=== PATIENT | male | born 1975 | race Caucasian/White ===

== ENCOUNTER 2019-11-11 21:54 | Emergency (ER) | payer SELFPAY ==
[2019-11-11 21:57] VITALS: BP 116/87; PULSE 100; RESP 16; TEMP 36.8; O2SAT 97; BMI 25.0
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
[2019-11-11 22:42] LABS: Basophils % 0.2 %; Eosinophils # 0.1 10^3/uL (0.0-0.8); Eosinophils % 1.2 %; Hematocrit 39.2 % (42.0-52.0); Hemoglobin 12.8 g/dL (11.7-16.6); Lymphocytes % 20.8 %; Mean Corpuscular HGB Conc 32.7 g/dL (30.0-36.0); Mean Corpuscular Hemoglobin 30.2 pg (28.0-34.0); Mean Corpuscular Volume 92.5 fL (80-94); Mean Platelet Volume 9.1 fL (7.4-10.4); Monocytes # 0.6 10^3/uL (0.2-0.9); Monocytes % 5.6 %; Nucleated Red Blood Cells % 0 %; Platelet Count 246 10^3/cmm (130-400); Red Blood Count 4.24 10^6/uL (4.1-5.3); Red Cell Distribution Width 13.2 % (12.1-15.1); White Blood Count 9.7 10^3/uL (4.0-10.0)
[2019-11-11 22:44] VITALS: RESP 18
[2019-11-11] MEDS: HYDROmorphone 1 mg/mL INJ 1 mL IVP (22:44)
[2019-11-11] MEDS: ondansetron 2 mg/ML SDV 2 mL 4 MG IVP (22:44)
[2019-11-11 23:01] LABS: Alanine Aminotransferase 13 U/L (0-41); Albumin Level 4.2 g/dL (3.5-5.2); Alkaline Phosphatase 63 IU/L (40-130); Anion Gap 16.1 (5-19); Aspartate Amino Transferase 15 U/L (0-40); Blood Urea Nitrogen 13 mg/dL (6-20); Carbon Dioxide 27 mmol/L (22-29); Chloride 104 mmol/L (98-107); Globulin 2.6 g/dL (1.3-4.6); Glucose 110 mg/dL (65-115); Osmolality Calculated 293 mOsm/kg (285-295); Potassium 4.1 mmol/L (3.5-5.1); Sodium 143 mmol/L (136-145); Total Bilirubin 0.2 mg/dL (0.15-1.2); Total Protein 6.8 g/dL (6.6-8.7)
[2019-11-11] MEDS: LORazepam 2 mg/mL INJ 1 mL IVP (23:05)
--- NOTE | 2019-11-11 23:12 | PC.NURSE ---
MD at bedside to remove blade from arm. Pt. tolerating well.
[2019-11-11 23:14] VITALS: BP 130/89; PULSE 77; RESP 19; O2SAT 99
--- NOTE | 2019-11-11 23:30 | XRR_ITS ---
PROCEDURE INFORMATION: Exam: XR Right Humerus Exam date and time: 11/11/2019 11:31 PM Age: 43 years old Clinical indication: Injury or trauma; Follow-up exam; Wound; Arm, upper; Right; Additional info: Post foreign body removal TECHNIQUE: Imaging protocol: XR Right humerus Views: 2 or more views. COMPARISON: [place] [id number] 11/11/2019 10:17 PM FINDINGS: Bones/joints: Normal. Soft tissues: Surgical irina seen over the right upper humerus with removal of previously seen foreign body in this area. XR/[place] [id number] IMPRESSION: Surgical irina seen over the right upper humerus with removal of previously seen foreign body in this area.
--- NOTE | 2019-11-11 23:45 | PC.NURSE ---
MLP at bedside to jayson pt's right hand laceration. [place] in place to right upper arm laceration. Pt. tolerating well.
[2019-11-11 23:48] VITALS: BP 120/90; PULSE 92; RESP 18; O2SAT 98
--- NOTE | 2019-11-11 23:51 | PC.NURSE ---
Pt. given Dilaudid instead of morphine. Morphine not given
[2019-11-12] MEDS: tetanus-dipt-pertussis 0.5 mL SDV IM (01:12)
[2019-11-12 01:14] VITALS: BP 117/87; PULSE 79; RESP 19; O2SAT 97
--- NOTE | 2019-11-14 11:52 | DCPLANNER ---
manager personal had message to schedule a follow up appointment for patient with ortho. manager personal called the ortho clinic, spoke with Trixie, gave clinic patients information. manager personal was told that patients information would be printed and reviewed. Clinic will call hospice case manager and patient with appointment information.
--- NOTE | 2019-11-15 09:13 | DCPLANNER ---
Addendum entered by Estefani Oden 11/15/19 09:42: this was documented on the wrong patient. Patient has a follow up appointment with ortho not Dr. Stallworth. Original Note: manager banking had message to schedule a follow up appointment for patient with Dr. Stallworth. manager banking called the office of Dr. Stallworth, spoke with Judie, gave clinic patients information. A follow up appointment is scheduled for , November 24, 2019 at 12:[address] Stallworth. manager banking called patient and informed patient of the scheduled appointment. manager banking also informed Deana with [facility] of scheduled appointment.
--- NOTE | 2019-11-15 10:34 | DCPLANNER ---
Addendum entered by Estefani Oden 11/16/19 11:24: Pat from ortho called rn field case manager stating that the clinic attempted to contact patient, left a voicemail, but was not able to confirm with patient appointment information. Patient had an appointment scheduled for 11.15.19, patient did not attend the appointment. Appointment did not go as a no show, due to clinic not being able to confirm appointment with patient. Original Note: Patient has a follow up appointment scheduled for Friday, November 15, 2019 at 2:[address] Jerome at ortho. Clinic will call patient with appointment information.
--- NOTE | 2019-12-02 13:56 | DCPLANNER ---
Patient had an appointment scheduled with ortho for 11.15.19. The appointment had been cancelled.
== END 2019-11-12 01:18 | disposition home or self-care (01) ==
PROVIDERS: Physician Assistant; Emergency Provider Emergency Medicine
DX: S41.121A Laceration with foreign body of right upper arm, initial encounter (principal); S62.390A Other fracture of second metacarpal bone, right hand, initial encounter for closed fracture; W31.89XA Contact with other specified machinery, initial encounter; F17.210 Nicotine dependence, cigarettes, uncomplicated
CPT/HCPCS: 12002; 12034; 12345; 29125; 73060; 73130; 80053; 85025; 86850; 86900; 87040; 90471; 90715; 96365; 96375; 99282; 99283; A6446; J0690; J1170; J2060; J2405

== ENCOUNTER 2020-04-16 00:36 | Observation (INO) | payer SELFPAY ==
[2020-04-16] VITALS (17 sets, daily range): BP systolic 89–137; BP diastolic 56–84; PULSE 79–118; RESP 16–19; TEMP 36.6–37.6; O2SAT 93–99; BMI 23.1; BMI 26.4
--- NOTE | 2020-04-16 00:50 | ED_ITS ---
HPI - Abdominal Pain General: Chief Complaint: Abdominal Pain Stated Complaint: ACUTE APPY Time Seen by Provider: 04/16/20 00:47 History of Present Illness: HPI narrative: 44-year-old gentleman who was seen in outside facility with abdominal pain. His pain localized to the right lower quadrant. Has had a fever. His white blood cell count was 17. He was diagnosed with acute appendicitis. He presents for admission, and is screened through the ER for Covid symptoms. MD elicited complaint: abdominal pain Pertinent past history: none Onset (ago): hour(s) Pain Consistency: constant Location: RLQ Severity: moderate Quality: stabbing and aching Radiation: none Migration to: no migration Exacerbating factors: movement Relieving factors: nothing Associated Symptoms: Reports fever(s) and nausea Review of Systems Const: Reports: fever(s) Card: Denies: chest pain or palpitations Resp: Denies: dyspnea, productive cough, non-productive cough or wheezing GI: Reports: abdominal pain and nausea PFSH ED PFSH: Social History Smoking and tobacco status: current every day smoker Physical Exam Const: GENERAL APPEARANCE: well developed ORIENTATION/CONSCIOUSNESS: Yes oriented to person, Yes oriented to place and Yes oriented to time HENMT: COMMON NORMALS: normocephalic, external ears normal and Normal external nose present HEAD & SCALP: normocephalic FACE & SINUS: normal facial exam NOSE: Normal external nose present and No nasal discharge present EXTERNAL EAR: Yes external ears normal Eye: COMMON NORMALS: Equal, round and reactive pupils present, EOMs intact bilaterally and conjunctivae normal EYELID: eyelids normal CONJUNCTIVA: Yes conjunctivae normal PUPIL: Yes Equal, round and reactive pupils present Neck/C-Spine: GENERAL: No tracheal deviation Chest: COMMONS NORMALS: normal inspection of the chest CHEST: No tenderness Resp: COMMON NORMALS: clear to auscultation bilaterally EFFORT & INSPECTION: No tachypneic, No respiratory distress, No retractions, No uses accessory muscles and No tracheal deviation AUSCULTATION: clear to auscultation bilaterally, no rhonchi, no wheezes and lung sounds not diminished Cardio: COMMON NORMALS: regular rate and regular rhythm RATE: regular rate RHYTHM: regular rhythm HEART SOUNDS: no murmurs PERIPHERAL PULSES: radial pulses present GI: INSPECTION: No abdominal distension AUSCULTATION: No Hyperactive bowel sounds present and No Hypoactive bowel sounds present PALPATION: Yes Tenderness to palpation present (GI) Details: RLQ, Yes Guarding due to palpation present (GI) in the RLQ and No Rigid due to palpation PERCUSSION: no dullness to percussion and no tympanic to percussion Neuro: SENSORIUM/ORIENTATION: Yes oriented to person, Yes oriented to place and Yes oriented to time Psych: COMMON NORMALS: mental status grossly normal Skin: COMMON NORMALS: no rashes or lesions noted GENERAL SKIN EXAM: no rashes or lesions noted Course Consultations: Consultation #1: Samir Time: 00:50 Vital Signs: Vital signs: Vital Signs Temperature 97.9 F 04/16/20 00:50 Pulse Rate 111 H 04/16/20 01:26 Respiratory Rate 16 04/16/20 01:26 Blood Pressure 130/79 04/16/20 01:26 Pulse Oximetry 93 04/16/20 01:26 MDM - Abdominal Pain MDM Narrative: Medical decision making narrative: 44-year-old male presenting with acute appendicitis diagnosed at an outside facility. He has a [address] with no rupture. He is given Zosyn here, and will be continued on the floor. Spoke with surgery, he is willing to admit to observation status. Pain and nausea control with IV fluids otherwise. 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
[2020-04-16] MEDS: HYDROmorphone 1 mg/mL INJ 1 mL IVP (01:16)
[2020-04-16] MEDS: ketorolac 30 mg/mL INJ IVP (01:16)
[2020-04-16] MEDS: piperacillin-tazobactam 3.375 GM in sodium chloride 0.9% (plus) 50 ML IV (01:17)
[2020-04-16] MEDS: sodium chloride 0.9% 1,000 ML 150 ML IV (02:43)
--- NOTE | 2020-04-16 08:38 | ANES.PREANE2 ---
Pre-Anesthetic Assessment Pre-Anesthetic Assessment: Height/Weight: Height 1.83 m Weight 88.451 kg Temp Pulse Resp BP Pulse Ox 98.5 F 95 17 95/57 94 04/16/20 07:12 04/16/20 07:12 04/16/20 07:12 04/16/20 07:12 04/16/20 07:12 Preop Diagnosis: Acute appendicitis Proposed Procedure: Operation Date: 04/16/20 09:15 Proposed Procedures p Laparoscopic Appendectomy(Not Applicable) - Tin Dawson MD Was Beta Jane taken within 24 hours: N/A Last intake: Intake Last Liquid Date 04/16/20 Last Liquid Time 00:00 Last Solid Date 04/16/20 Last Solid Time 00:00 Social: Social History: Alcohol and Tobacco Exam: Pre-Anes Outpt Exam: alert, oriented x 3, clear to auscultation bilaterally and regular rate & rhythm Airway: Submandibular: WNL Cervical ROM: WNL MP: 1 Dentition: Chipped History/ROS: No significant complaints Pulmonary: Pulmonary: None reported CV/HEM: CV/HEM: None reported : : None reported Hepatic: Hepatic: None reported GI: GI: None reported Metabolic: Metabolic: None reported Musc/skel: Musc/skel: None reported Neuropsych: Neuropsych: None reported Anesthetic Plan: ASA status: 2 Anesthesia: General Meds/Allergies Current Medications: Current Medications Generic Name Dose Route Start Last Admin Trade Name Freq PRN Reason Stop Dose Admin Sodium Chloride 1,000 mls @ 150 m ls/hr 04/16/20 01:59 04/16/20 02:43 Sodium Chloride 0.9% IV 150 mls/hr .[id number] ARVIN Administration PFSH Anesthesia PFSH: Social History Smoking and tobacco status: current every day smoker Data Anesthesia Cardiac Studies: No Data to Display
--- NOTE | 2020-04-16 08:47 | PM.HP ---
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 This was associated with nausea and vomiting. Patient took some Pepto-Bismol and mag citrate with no relief of symptoms. He denies any fevers, chills, constipation or diarrhea. No similar episodes in the past Review of Systems General: Reports: 10 or more systems reviewed and unremarkable except in HPI and below Medications/Allergies Home Medications Medication Instructions Recorded Confirmed Last Taken Type No Known Home Medications 04/16/20 04/16/20 Unknown History Allergies Allergy/AdvReac Type Severity Reaction Status Date / Time No Known Allergies Allergy Verified 04/16/20 00:55 PFSH Acute PFSH: Medical History (Updated 04/16/20 @ 08:49 by Tin Dawson MD) No pertinent past medical history Surgical History (Updated 04/16/20 @ 08:49 by Tin Dawson MD) No pertinent past surgical history Social History Smoking and tobacco status: current every day smoker Vitals/I&O/Wt Last Vital Signs Temp 99.7 F H 04/16/20 08:38 Pulse 98 04/16/20 08:38 Resp 16 04/16/20 08:38 BP 111/59 04/16/20 08:38 Pulse Ox 94 04/16/20 07:12 04/15/20 04/16/20 04/16/20 22:59 06:59 14:59 Intake Total 50 / 50 Output Total 700 / 700 Balance 50 / 50 -700 / -700 Weight last 48 hrs Weight 195 lb Weight 195 lb Physical Exam Narrative: EXAM NARRATIVE: HEENT: Normocephalic Eye: Sclera /conjunctiva normal Respiratory and chest: Bilateral clear breath sounds on auscultation Cardiovascular: Normal S1 and S2 heart sounds Abdomen: Soft to palpation, tender right lower quadrant, voluntary guarding, no rigidity Neurological: Oriented to place person and time Skin: Intact, no lesions appreciated on gross exam A&P Assessment and plan (1) Acute appendicitis: 44-year-old gentleman otherwise healthy with 24 history of abdominal pain, nausea, vomiting with leukocytosis of [address] scan showing acute appendicitis with adjacent inflammation, no evidence of peritonitis. 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
--- NOTE | 2020-04-16 10:58 | P.OP_ITS ---
Operative Report Date of procedure: April 16, 2020 Pre-op Diagnosis: Acute appendicitis Post-op diagnosis: same Procedure Done: Laparoscopic appendectomy Specimens removed/disposition: Appendix Surgeon: Tin Dawson Anesthesia: General Condition: stable Disposition: PACU Procedure: The patient was taken to the Operating Room and intubated under general anesthesia after antibiotic had been administered. Using a 15 blade, a 1-cm infraumbilical incision was made and using open Pablo technique, the peritoneal cavity was entered. A 12mm port with balloon was placed and 14 mm of pneumoperitoneum was created and 10-mm 30 degree scope was introduced. Two separate 5mm ports were placed in the left and right lower quadrant under direct visualization. The appendix was noted in the right lower quadrant and appeared acutely inflamed.. Using [place] forceps, an opening was made in the mesoappendix near the base of the appendix. An Endo NAFISA stapler 45mm long 3.5mm blue load was introduced to divide the appendix at it's base. Using electrocau claire, the mesoappendix including the appendicular artery was divided. There was no bleeding noted and the staple line appeared intact. The right lower quadrant was irrigated with saline and an EndoCatch bag was introduced to remove the appendix. All three ports were removed under direct visualization and there was no bleeding noted on the port sites. 10 of cc .5% Marcaine was infiltrated at the port sites. The fascia at the umbilical port was closed using figure of eight 0-Vicryl sutures and subcutaneous tissue was approximated using 3-0 Vicryl and skin at all 3 port sites was closed using 4-0 Monocryl and Dermabond.
--- NOTE | 2020-04-16 11:00 | P.DS_ITS ---
Discharge Providers Date of Admission: 04/16/20 00:53 Date of Discharge: April 16, 2020 Attending Provider at Admission: Tin Dawson MD Attending Provider at Discharge: Tin Dawson MD Diagnoses at Discharge Discharge Diagnosis (1) Acute appendicitis: Status: Resolved Qualifiers: Acute appendicitis type: with localized peritonitis Appendicitis abscess presence: without abscess Appendicitis gangrene presence: without gangrene Appendicitis perforation presence: without perforation Qualified Code(s): K35.30 - Acute appendicitis with localized peritonitis, without perforation or gangrene Reason for Visit Reason for Visit: ACUTE [facility] Hospital Course Hospital Course This is a 44-year-old male who was transferred from [facility] with acute appendicitis overnight. Patient was admitted to the hospital placed on IV Zosyn and today underwent laparoscopic appendectomy. At time of discharge his vital signs are stable, is tolerating a liquid diet and pain controlled with oral pain medications. Discharge Data Data Completed and Pending: Pending at discharge Category Date Time Status ES surgery / GI i mages Routine Exams 04/16/20 09:27 Ordered Vitals: Last Vital Signs Temp 99.7 F H 04/16/20 08:38 Pulse 98 04/16/20 08:38 Resp 16 04/16/20 08:38 BP 111/59 04/16/20 08:38 Pulse Ox 94 04/16/20 07:12 Discharge Plan Discharge Patient Disposition: Home Condition: Stable Prescriptions: [place] 5-325 mg tablet 1 tab PO Q6H 7 Days Qty: 20 RF: 0 docusate sodium [Colace] 100 mg capsule 100 mg PO BID Qty: 30 RF: 0 ondansetron HCl [Zofran] 4 mg tablet 4 mg PO Q6H PRN (Reason: nausea and vomiting) Qty: 20 RF: 0 No Action No Known Home Medications RF: 0 Discharge Orders: Discharge Order (Routine); Ordered 04/16/20 Ordered By: Tin Dawson Referrals: Tin Dawson MD [Physician] - 2 weeks (2 weeks) Discharge Diet: Advance as tolerated Activity Restrictions/Additional Instructions: 1. Up and walking as tolerated. 2. Ok to shower in 48 hours after surgery. 3. Remove Dermabond dressing in 7-10 days. 4. Do not lift more than 10 pounds. 5. Do not operate heavy machinery or drive while using pain medications. 6. Advised to return to ER or contact my office if there are any signs of infection like, increasing pain, fevers, chills, redness or drainage of pus. 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
[2020-04-16] MEDS: sodium chloride 0.9% 1,000 ML 100 ML IV (11:38)
[2020-04-16 12:04] LABS: Glucose Point of Care 105 mg/dL (70-110)
--- NOTE | 2020-04-16 15:04 | PM.PACU ---
PACU note PACU note: Adequate Pain control and no N/V Post-Anesthesia Exam: awake and vital signs stable Disposition: admitted
--- NOTE | 2020-04-16 17:58 | PC.RESP ---
Smoking Cessation information sent to patient.
== END 2020-04-16 18:00 | disposition home or self-care (01) ==
LOC: ER 00:57 → MEDSURG 01:28
PROVIDERS: Admitting Provider Surgery; Emergency Provider Emergency Medicine; Visit Provider Surgery
PROC: 0DTJ4ZZ Resection of Appendix, Percutaneous Endoscopic Approach (ICD-10-PCS; CPT 44970; principal; 2020-04-16 09:15)
DX: K35.30 Acute appendicitis with localized peritonitis, without perforation or gangrene (principal); F17.210 Nicotine dependence, cigarettes, uncomplicated
CPT/HCPCS: 44970; 12345; 36416; 82962; 88304; 96361; 96365; 96375; 99282; 99285; G0378; J0131; J1100; J1170; J1885; J2370; J2405; J2543; J2704; J2710; J2765; J3010; J3490; J7030

== ENCOUNTER → 2025-05-24 13:41 | Outpatient (BNVA) | payer OTHER, SELFPAY | PROVIDERS: PCP Nurse Practitioner Family; Visit Provider Nurse Practitioner Family | DX: Z02.83 Encounter for blood-alcohol and blood-drug test (principal); S69.90XA Unspecified injury of unspecified wrist, hand and finger(s), initial encounter; X58.XXXA Exposure to other specified factors, initial encounter | CPT/HCPCS: 73130; 80307 ==